=== PATIENT | female | born 1940 | race Caucasian/White ===

== ENCOUNTER 2017-03-18 07:45 | Inpatient (IN) | payer OTHER ==
[~2017-03-18] VITALS: Ht 160 cm; Wt 51.7 kg
[2017-03-18 09:44] LABS: BASOPHIL % 0.8 % (0-2); PLATELET COUNT 171 x10^3mcL (130-400)
[2017-03-18 10:02] LABS: ALKALINE PHOSPHATASE 90 U/L (46-116); ALT/SGPT 30 U/L (14-59); AST/SGOT 33 U/L (15-37); BILIRUBIN TOTAL 0.7 mg/dL (0.20-1.00); CHLORIDE SERUM 100 mmol/L (98-107); GLUCOSE SERUM 143 mg/dL (74-106); LIPASE 155 IU/L (73-393); SODIUM SERUM 140 mmol/L (136-145)
[2017-03-18 10:06] LABS: CREATININE SERUM 4.5 mg/dL (0.6-1.0); TOTAL PROTEIN, SERUM 8.5 g/dL (6.4-8.2)
[2017-03-18] MEDS ORDERED: NOR5 PO (10:43)
[2017-03-18] MEDS ORDERED: PANTOPRAZOLE SO40 M1 PO (10:43)
[2017-03-18] MEDS ORDERED: MINOXIDIL2.5 MG PO (10:44)
[2017-03-18] MEDS ORDERED: ASPIR 8181 MG PO (10:44)
[2017-03-18] MEDS ORDERED: LISINOPRIL10 MG PO (10:44)
[2017-03-18] MEDS ORDERED: LIPI10 PO (10:44)
[2017-03-18 12:31] VITALS: BP 125/59
[2017-03-18 16:12] VITALS: BP 125/59
[2017-03-18 16:42] LABS: PHOSPHOROUS 3.6 mg/dL (2.5-4.9)
[2017-03-18 16:45] LABS: FREE T4 1.41 ng/dL (0.76-1.46); FREE THYROXINE INDEX 4.4 ug/dL (1.4-4.5); T4(THYROXINE) 13.2 ug/dL (4.7-13.3)
[2017-03-18 16:51] LABS: CHOLESTEROL/HDL RATIO 2.6
[2017-03-18 18:05] VITALS: BP 119/49
[2017-03-18 20:30] VITALS: BP 114/43
[2017-03-18 21:16] LABS: T3 TOTAL 0.84 ng/mL
[2017-03-18 22:24] VITALS: BP 117/38
[2017-03-19] VITALS (15 sets, daily range): BP systolic 100–163; BP diastolic 40–81
[2017-03-19 06:23] LABS: PLATELET COUNT 136 x10^3mcL (130-400); RED CELL DISTRIBUTION WIDTH 15.9 % (11.5-14.5)
[2017-03-19 06:30] LABS: CALCIUM 7.9 mg/dL (8.5-10.1); CHLORIDE SERUM 104 mmol/L (98-107); CREATININE SERUM 3.5 mg/dL (0.6-1.0); GLUCOSE SERUM 94 mg/dL (74-106); SODIUM SERUM 141 mmol/L (136-145)
[2017-03-19 06:34] LABS: MAGNESIUM 1.7 mg/dL (1.8-2.4); PHOSPHOROUS 4.7 mg/dL (2.5-4.9)
[2017-03-19 14:37] LABS: TOTAL PROTEIN, SERUM 7.9 g/dL (6.4-8.2)
[2017-03-19 15:59] LABS: SOURCE FLUID ASCITES
[2017-03-19 16:00] LABS: APPEARANCE FLUID HAZY; COLOR FLUID PALE YELLOW; LYMPHOCYTE FLUID 40 %; RBC FLUID 158 /cumm; WBC FLUID 96 /cumm
[2017-03-20] VITALS (12 sets, daily range): BP systolic 85–175; BP diastolic 40–76
[2017-03-20 05:36] LABS: BASOPHIL % 0.5 % (0-2); PLATELET COUNT 144 x10^3mcL (130-400)
[2017-03-20 05:40] LABS: RED CELL DISTRIBUTION WIDTH 15.8 % (11.5-14.5)
[2017-03-20 06:10] LABS: CALCIUM 8.1 mg/dL (8.5-10.1); CARBON DIOXIDE 24.9 mmol/L (21-32); CHLORIDE SERUM 99 mmol/L (98-107); GLUCOSE SERUM 101 mg/dL (74-106); MAGNESIUM 1.6 mg/dL (1.8-2.4); PHOSPHOROUS 5.3 mg/dL (2.5-4.9); POTASSIUM SERUM 3.7 mmol/L (3.5-5.1); SODIUM SERUM 134 mmol/L (136-145)
[2017-03-20 06:13] LABS: CREATININE SERUM 5.5 mg/dL (0.6-1.0)
[2017-03-20 15:02] LABS: CARBON DIOXIDE 27.4 mmol/L (21-32); CHLORIDE SERUM 99 mmol/L (98-107); GLUCOSE SERUM 119 mg/dL (74-106); POTASSIUM SERUM 3.5 mmol/L (3.5-5.1); SODIUM SERUM 139 mmol/L (136-145)
[2017-03-20 15:03] LABS: CREATININE SERUM 4.2 mg/dL (0.6-1.0)
[2017-03-21 03:10] VITALS: BP 94/43
[2017-03-21 06:43] LABS: CALCIUM 7.8 mg/dL (8.5-10.1); CARBON DIOXIDE 28.2 mmol/L (21-32); CHLORIDE SERUM 100 mmol/L (98-107); GLUCOSE SERUM 112 mg/dL (74-106); MAGNESIUM 1.9 mg/dL (1.8-2.4); PHOSPHOROUS 5.3 mg/dL (2.5-4.9); POTASSIUM SERUM 3.6 mmol/L (3.5-5.1); SODIUM SERUM 138 mmol/L (136-145)
[2017-03-21 06:47] LABS: BASOPHIL % 0.9 % (0-2); CREATININE SERUM 5.1 mg/dL (0.6-1.0); PLATELET COUNT 132 x10^3mcL (130-400); RED CELL DISTRIBUTION WIDTH 16.3 % (11.5-14.5)
[2017-03-21 08:00] VITALS: BP 124/65
[2017-03-21 09:42] VITALS: Ht 160 cm; Wt 51.7 kg
[2017-03-21 12:00] VITALS: BP 142/58
[2017-03-21 14:30] VITALS: BP 143/55
[2017-03-21 19:15] VITALS: BP 112/43
[2017-03-22 05:56] VITALS: BP 132/54
[2017-03-22 09:31] VITALS: BP 139/62
[2017-03-22] MEDS ORDERED: METOPROLOL TART25 M1 PO (14:16)
[2017-03-22] MEDS ORDERED: NEP PO (14:17)
[2017-03-22 14:38] LABS: CARBON DIOXIDE 30.7 mmol/L (21-32); CHLORIDE SERUM 99 mmol/L (98-107); GLUCOSE SERUM 158 mg/dL (74-106); MAGNESIUM 1.7 mg/dL (1.8-2.4); PHOSPHOROUS 4.5 mg/dL (2.5-4.9); POTASSIUM SERUM 3.5 mmol/L (3.5-5.1); SODIUM SERUM 141 mmol/L (136-145)
[2017-03-22 14:39] LABS: CREATININE SERUM 4.4 mg/dL (0.6-1.0)
[2017-03-22 14:43] VITALS: BP 115/45
[2017-03-22 14:44] LABS: BASOPHIL % 0.3 % (0-2); PLATELET COUNT 152 x10^3mcL (130-400)
[2017-03-22] MEDS ORDERED: NORCO1 TA2 PO (15:08)
[2017-03-22 15:48] VITALS: BP 115/45
[2017-03-22 17:42] VITALS: BP 138/56
== END 2017-03-22 18:25 | disposition home health service (06) | DRG 441 ==
LOC: ED 07:45 → IC 10:25 → DU 10:25 → IC 03-19 10:47 → DU 03-21 14:17
PROVIDERS: Emergency Medicine; Family Medicine
PROC: 5A1D70Z Performance of Urinary Filtration, Intermittent, Less than 6 Hours Per Day (ICD-10-PCS; 2017-03-18)
PROC: 0W9G3ZZ Drainage of Peritoneal Cavity, Percutaneous Approach (ICD-10-PCS; principal; 2017-03-19)
PROC: 0BH17EZ Insertion of Endotracheal Airway into Trachea, Via Natural or Artificial Opening (ICD-10-PCS; 2017-03-19)
PROC: 5A1945Z Respiratory Ventilation, 24-96 Consecutive Hours (ICD-10-PCS; 2017-03-19)
PROC: 5A1D70Z Performance of Urinary Filtration, Intermittent, Less than 6 Hours Per Day (ICD-10-PCS; 2017-03-20)
PROC: 5A1D70Z Performance of Urinary Filtration, Intermittent, Less than 6 Hours Per Day (ICD-10-PCS; 2017-03-22)
DX: K76.1 Chronic passive congestion of liver (principal); N18.6 End stage renal disease; N17.0 Acute kidney failure with tubular necrosis; E43 Unspecified severe protein-calorie malnutrition; R09.2 Respiratory arrest; I12.0 Hypertensive chronic kidney disease with stage 5 chronic kidney disease or end stage renal disease; R18.8 Other ascites; J98.11 Atelectasis; M84.48XA Pathological fracture, other site, initial encounter for fracture; K57.90 Diverticulosis of intestine, part unspecified, without perforation or abscess without bleeding; I45.10 Unspecified right bundle-branch block; E83.42 Hypomagnesemia; E83.39 Other disorders of phosphorus metabolism; E11.9 Type 2 diabetes mellitus without complications; E78.5 Hyperlipidemia, unspecified; I25.2 Old myocardial infarction; Z68.20 Body mass index [BMI] 20.0-20.9, adult; Z99.2 Dependence on renal dialysis; Z87.891 Personal history of nicotine dependence; Z95.1 Presence of aortocoronary bypass graft; Z79.82 Long term (current) use of aspirin
CPT/HCPCS: 36600; 83880; 84439; 97110-GP; 97116-GP; 97530-GP; A4628; J1170; J1644; J2001; J2060; J2405; J3475; J3490; J7030; J7040; J7620; Q0092